=== PATIENT | female | born 1935 | race Caucasian/White ===

== ENCOUNTER → 2016-09-29 | Outpatient (CLI) | payer MEDICARE, OTHER ==
[~2016-09-29] MED LIST: ALTACE 2.5MG T2.5 MG PO; BENTYL 10MG10 MG/CAP PO; DIFICID200 MG; LASIX 20MG TABL20 MG PO; LIPITOR 40MG TA40 MG PO; MEVACOR40 MG PO; MILK OF MAGNESI30 M1 PO; NORCO 325 MG-7.1 TAB PO; PHENERGAN 25 TA25 MG PO; PLAVIX 75MG TAB75 MG PO; PROTONIX 40MG T40 MG PO; ROXICODONE 55 MG/TAB PO; SENOKOT8.6 MG PO; ULTRAM 50MG TAB50 MG PO; XANAX .25M0.25 MG/TA PO; XARELTO10 MG PO; ZESTRIL 20MG TA20 MG PO; ZOFRAN 4MG T4 MG/TAB PO
== END ==
LOC: COL.VAS 10:22
DX: R01.1 Cardiac murmur, unspecified (principal); R94.39 Abnormal result of other cardiovascular function study

== ENCOUNTER → 2018-06-13 | Outpatient (CLI) | payer MEDICARE, OTHER | LOC: COL.RAD 11:27 | DX: C79.51 Secondary malignant neoplasm of bone (principal); N90.89 Other specified noninflammatory disorders of vulva and perineum; Z79.01 Long term (current) use of anticoagulants | CPT/HCPCS: A9585 ==

== ENCOUNTER → 2019-01-08 | Outpatient (CLI) | payer MEDICARE, OTHER | LOC: COL.CARD 07:06 | DX: Z01.812 Encounter for preprocedural laboratory examination (principal); R33.9 Retention of urine, unspecified ==

== ENCOUNTER 2019-01-12 10:23 | Emergency (ER) | payer MEDICARE, OTHER ==
[~2019-01-12] VITALS: Ht 167.6 cm; Wt 65.9 kg
[2019-01-12 10:33] VITALS: BP 124/58; TEMP 98
[2019-01-12] MEDS ORDERED: OSCAL 500 TAB500 MG PO (10:50)
[2019-01-12] MEDS ORDERED: VITAMIN D31000 I1 PO (10:51)
[2019-01-12] MEDS ORDERED: CRANBERRY500 M3 PO (10:51)
[2019-01-12] MEDS ORDERED: B-12 500 MCG PO (10:52)
[2019-01-12] MEDS ORDERED: NEURONTIN100 MG/CAP PO (10:52)
[2019-01-12] MEDS ORDERED: MEGACE 40MG40 MG/TAB PO (10:53)
[2019-01-12] MEDS ORDERED: LUTEIN6 MG (10:53)
[2019-01-12] MEDS ORDERED: RESTASIS MULTI5.5 ML OU (10:54)
[2019-01-12] MEDS ORDERED: PROTONIX 40MG T40 MG PO (10:54)
[2019-01-12] MEDS ORDERED: DESYREL 100MG100 MG PO (10:55)
[2019-01-12 11:22] VITALS: PULSE 84
== END 2019-01-12 11:22 | disposition home or self-care (01) ==
LOC: COL.ER 10:23
DX: T83.098A Other mechanical complication of other urinary catheter, initial encounter (principal); I10 Essential (primary) hypertension; K21.9 Gastro-esophageal reflux disease without esophagitis; Z90.710 Acquired absence of both cervix and uterus

== ENCOUNTER 2019-02-26 09:49 | Inpatient (IN) | payer MEDICARE, OTHER ==
[~2019-02-26] VITALS: Ht 167.6 cm; Wt 60.4 kg
[~2019-02-26 09:49] MED LIST changes: +B-12 500 MCG PO; +CRANBERRY500 M3 PO; +DESYREL 100MG100 MG PO; +LUTEIN6 MG; +MEGACE 40MG40 MG/TAB PO; +NEURONTIN100 MG/CAP PO; +OSCAL 500 TAB500 MG PO; +RESTASIS MULTI5.5 ML OU; +VITAMIN D31000 I1 PO
[2019-02-26 10:38] LABS: HEMOGLOBIN 11.4 g/dl (12.5-16.0); MEAN CELL VOLUME 99 fl (80.0-100.0); MEAN CORPUSCULAR HEMOGLOBIN 32 pg (27.0-31.0); MEAN CORPUSCULAR HGB CONC 33 g/dl (33.0-37.0); MEAN PLATELET VOLUME 9.7 fl (7.4-10.4); PLATELET COUNT 244 K/mm3 (130-400); RED BLOOD COUNT 3.52 M/mm3 (4.10-5.30); REDCELL DISTRIBUTION WIDTH-CV 12.8 % (11.5-14.5)
[2019-02-26 10:39] LABS: HEMATOCRIT 34.8 % (37.0-47.0)
[2019-02-26 10:51] LABS: ALBUMIN 3.5 gm/dL (3.5-5.0); BILIRUBIN,TOTAL 0.5 mg/dL (0.0-1.0); CALCIUM 9.3 mg/dL (8.4-10.2); CREATININE, serum 1.31 (0.52-1.25); POTASSIUM 4.9 mmol/L (3.4-5.0); TOTAL PROTEIN 6.6 gm/dL (6.4-8.2)
[2019-02-26 10:56] LABS: BAND 24 % (0-10); LYMPHOCYTE 1 % (20.0-51.0); NEUTROPHILS 74 % (42.0-75.2); TOXIC GRANULATION PRESENT
[2019-02-26 10:57] LABS: PLATELET ESTIMATE NORMAL (NORMAL)
[2019-02-26 12:12] LABS: COLLECTION METHOD CATHETER
[2019-02-26 12:18] LABS: MUCOUS Present /lpf; PH 5 (5-8); SQUAMOUS EPITHELIAL None Seen /hpf; URINE APPEARANCE Hazy; URINE BACTERIA None Seen /hpf; URINE BILIRUBIN Negative (NEGATIVE); URINE BLOOD Negative (NEGATIVE); URINE COLOR Yellow; URINE GLUCOSE Negative (NEGATIVE); URINE KETONE Negative (NEGATIVE); URINE LEUKOCYTE ESTERASE Trace (NEGATIVE); URINE NITRATE Positive (NEGATIVE); URINE PROTEIN(semi-quant) Negative (NEGATIVE); URINE UROBILINOGEN Negative (NEGATIVE)
[2019-02-26] MEDS ORDERED: PLAVIX 75MG TAB75 MG PO (13:41)
[2019-02-26] MEDS ORDERED: MASON NATURAL500 MG PO (13:42)
[2019-02-26] MEDS ORDERED: MIRALAX PA17 GM/Dose PO (13:44)
[2019-02-26] MEDS ORDERED: NYSTATIN OR100 MU/ML PO (13:45)
[2019-02-26] MEDS ORDERED: OCUVITE1 TA1 PO (13:54)
[2019-02-26] MEDS ORDERED: DITROPAN XL 5MG5 M1 PO (13:55)
[2019-02-26] MEDS ORDERED: OXY IR5 MG PO (13:55)
[2019-02-26] MEDS ORDERED: OMEGA MINT FISH1 SGL (13:55)
[2019-02-26] MEDS ORDERED: TAMOXIFEN CITRA20 MG PO (13:56)
[2019-02-26] MEDS ORDERED: TYLENOL 325MG325 MG PO (13:57)
[2019-02-26] MEDS ORDERED: VITAMIN A10k (13:57)
[2019-02-26] MEDS ORDERED: B COMPLEX #11 TAB (13:58)
[2019-02-26 16:02] VITALS: BP 128/39; PULSE 79; TEMP 98.6
--- NOTE | 2019-02-26 17:20 | NUR ---
Patient arrived to room from ER via stretcher. Had fluids and antibiotics infusing. Was assisted off stretcher with assist of one, myron pressley. Is observed to have bruising to left eye and arm. States she is having abdominal pain, aching duration. PRN pain medication administered per patient request. Patient is curently resting in bed with eyes closed. Does have clear liquid diet, provided ice water. Personal items and call light are within reach.
--- NOTE | 2019-02-26 17:59 | NUR ---
Patient is resting in bed with lights off and door closed. States pain has improved some since PRN was administered. Does open eyes to voice. Call light and personal items are within reach.
[2019-02-26 19:29] VITALS: BP 117/79; PULSE 93; TEMP 98.9
--- NOTE | 2019-02-26 20:00 | NUR ---
Report received. 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 Assessment complete. VS stable. Zhu cath draining dark yellow clear urine. Noted to have a leg bag-changed to regular bag due to increased output due to IV fluids. New statlock attached to left leg. Seems to be slightly confused as to what tie of day it is. When administering HS meds thought it was 0830 in the morning instead of 2030. Was oriented in every other question. Denies pain, states she is just tired. Tele leads checked and replaced. Denies N/V. No liquid stools this shift. Call light within reach. Enocuraged to call for questions or concerns. Verbalizes understanding. WIll monitor.
[2019-02-26 23:53] VITALS: BP 112/34; PULSE 87; TEMP 99
[2019-02-26 23:55] VITALS: BP 112/34; PULSE 87; TEMP 99
--- NOTE | 2019-02-27 03:31 | NUR ---
Has rested well this shift. Denies N/V. No stools this shift. Has been alert and oriented to person, place and time after initial confusion at 1999. Has denied pain. Zhu cath to dependent draining-urine has been [id number]. VS have remained stable. IV to left wrist area infusing NS @125ml/hr without difficulty. No redness or swelling noted. Denies needs. High fall risk-signs hung-arm band applied. Call light in reach. Bed in low position. Wheels locked. Will monitor.
[2019-02-27 04:07] VITALS: BP 111/35; PULSE 91; TEMP 98.9
[2019-02-27 06:29] LABS: BASO # 0.1 (0.0-0.2); BASO % 0.4 % (0.0-2.0); GRAN % 85.7 % (42.2-75.2); LYMPH # 0.9 (1.2-3.4); LYMPH % 7.9 % (20.0-51.0); MEAN CELL VOLUME 98 fl (80.0-100.0); MEAN CORPUSCULAR HGB CONC 33 g/dl (33.0-37.0); MEAN PLATELET VOLUME 9.8 fl (7.4-10.4); MONO # 0.7 (0.1-0.6); MONO % 5.6 % (1.7-9.3); PLATELET COUNT 178 K/mm3 (130-400)
[2019-02-27 06:33] LABS: CREATININE, serum 0.93 (0.52-1.25)
[2019-02-27 06:55] LABS: HEMATOCRIT 27.5 % (37.0-47.0); HEMOGLOBIN 9.1 g/dl (12.5-16.0); MEAN CORPUSCULAR HEMOGLOBIN 33 pg (27.0-31.0)
--- NOTE | 2019-02-27 07:00 | NUR ---
Report received from NAKIA Unger. Pt in bed resting with covers over her face and did not awaken upon entry. Will continue to monitor.
[2019-02-27 08:00] VITALS: BP 101/53; PULSE 89; TEMP 98.6
--- NOTE | 2019-02-27 10:14 | NUR ---
Report given to Chepe Mckeon who will resume care. Rounding in room with hospitalist team at this time.
--- NOTE | 2019-02-27 10:30 | NUR ---
Completed medication administration and assessment; PT tolerated all cares well; PT able to communication concerns and acute changes during assessment; PT A&Ox3, LCTAB, multiple bruises in various stages of healing from fall at home; NS running at 75ml/hr to LW IV; Catheter in place draining yellow urine to dependent college bag; No further reported and/or assessed pain or concerns at time of exit; PT assisted to comfortable position in bed with personal items and call light within reach; Will continue to [facility]. [facility]
[2019-02-27 12:27] VITALS: BP 140/43; PULSE 89; TEMP 98.1
--- NOTE | 2019-02-27 14:43 | NUR ---
SW attended clinical rounds to discuss discharge planning. Patient lives independently at home with her . Patient's PCP is Dr Tirado and she obtains prescriptions from [facility] pharmacy. Patient does not use any DME or home health services. Patient does have a DPOA. SW will continue to follow and assist with discharge needs.
[2019-02-27 16:39] VITALS: BP 115/38; PULSE 69; TEMP 97.4
[2019-02-27 19:58] VITALS: BP 136/43; PULSE 80; TEMP 98.7
--- NOTE | 2019-02-27 20:30 | NUR ---
Initial shift assessment done- states having some abd pain and would like some pain meds- , also having loose stool- would like some meds for that also- Akanksha CANINE DEPUTY called- cannot have antidiarrhea meds, tylenol ordered for pain. Tele on, IV fluids of NS at 75cc/hr.
[2019-02-27 23:34] VITALS: BP 140/46; PULSE 89; TEMP 99.1
[2019-02-28 04:30] VITALS: BP 117/43; PULSE 89; TEMP 99.2
--- NOTE | 2019-02-28 05:56 | NUR ---
Up to BSC about 5-6 times for loose brown stool- Tele did call and states pt had a very quick run of afib rvr for about 12 beats-- Akanksha AGRICULTURAL SPECIALIST aware
[2019-02-28 07:09] VITALS: BP 135/47; PULSE 99; TEMP 98.8
[2019-02-28 07:29] LABS: BASO # 0.1 (0.0-0.2); BASO % 0.7 % (0.0-2.0); EOS # 0.1 (0.0-0.7); EOS % 1.4 % (0-4.0); GRAN # 5.1 (1.4-6.5); GRAN % 71.9 % (42.2-75.2); LYMPH # 1.4 (1.2-3.4); LYMPH % 19.5 % (20.0-51.0); MEAN CELL VOLUME 99 fl (80.0-100.0); MEAN CORPUSCULAR HGB CONC 33 g/dl (33.0-37.0); MEAN PLATELET VOLUME 9.8 fl (7.4-10.4); MONO # 0.4 (0.1-0.6); MONO % 6.2 % (1.7-9.3); PLATELET COUNT 166 K/mm3 (130-400); RED BLOOD COUNT 2.39 M/mm3 (4.10-5.30); REDCELL DISTRIBUTION WIDTH-CV 13.2 % (11.5-14.5)
[2019-02-28 07:32] LABS: HEMATOCRIT 23.6 % (37.0-47.0); HEMOGLOBIN 7.7 g/dl (12.5-16.0); MEAN CORPUSCULAR HEMOGLOBIN 32 pg (27.0-31.0)
[2019-02-28 07:41] LABS: CALCIUM 7.9 mg/dL (8.4-10.2); CREATININE, serum 0.72 (0.52-1.25); POTASSIUM 4.2 mmol/L (3.4-5.0)
--- NOTE | 2019-02-28 07:57 | NUR ---
Pt awake, alert and oriented. Denies any pain at this time. Breathing even and unlabored, denies shortness of breath. Completed morning assessment. Bruising noted to left eye and left arm. Smaller bruises noted on right arm. Zhu in place, draining clear yellow urine. Denies any loose stool since last night at 2300. Will continue to monitor, call light in reach.
--- NOTE | 2019-02-28 08:05 | NUR ---
During medication adminisration pt denies taking Nolvadex at the same time as megace. Reports she used to take them together but now her doctor has her switching every 21 days with the magace. She couldnt tell me what days she is supposed to take each without her calender.
[2019-02-28 11:15] VITALS: BP 128/47; PULSE 79; TEMP 98.3
--- NOTE | 2019-02-28 12:18 | NUR ---
PT LET ME KNOW SHE BEGAN HER ROUND OF BRANDEN ON February AND WILL TAKE THAT UNTIL February. WILL LET PHARMACY KNOW.
[2019-02-28 15:47] VITALS: BP 104/37; PULSE 74; TEMP 99.1
--- NOTE | 2019-02-28 16:48 | NUR ---
Pt lying in bed, breathing even and unlabored. Denies any pain at this time. WIll continue to monitor. Call light in reach.
--- NOTE | 2019-02-28 18:32 | NUR ---
Pt sitting in bed, denies any needs. Denies pain. Taught pt about needing a stool sample, hat in bathroom with occult test.
--- NOTE | 2019-02-28 19:01 | NUR ---
Pt lying in bed, denies any needs at this time. Hand off report given to Hodan YEE.
--- NOTE | 2019-02-28 20:39 | NUR ---
PT RESTING IN BED A+OX4. REPORTS NO PAIN. GRANT DRAINING FREELY NO KINKS, SECURED TO LEG. CLEAR YELLOW URINE NOTED. IV TO LEFT FOREARM FLUSHES WELL, NO REDNESS, NO SWELLING. NO SOA. REPORTS NO NEEDS AT THIS TIME, CALL LIGHT IN REACH
[2019-02-28 20:42] VITALS: BP 117/51; PULSE 80; TEMP 98.5
[2019-02-28 23:20] VITALS: BP 143/48; PULSE 87; TEMP 98.7
--- NOTE | 2019-03-01 | NUR ---
PT STOOL OCCULT IS POSSITIVE. ISAEL NIEL NOTIFIED. HGB DRAWN- STABLE AT THIS TIME. TYPE AND SCREEN ORDERED. HELADIO CARE POVIDED. GRANT DRAINING FREELY, NO KINKS. SECURED TO LEG. NO NEEDS AT THIS TIME. CALL LIGHT IN REACH
[2019-03-01 00:44] LABS: HEMATOCRIT 23.9 % (37.0-47.0)
[2019-03-01 04:03] VITALS: BP 144/56; PULSE 88; TEMP 99.7
--- NOTE | 2019-03-01 06:54 | NUR ---
PT HAD AN UNEVENTFUL NIGHT. REPORTED SOME PAIN IN ABD- PRN TYLENOL RELIEVED PAIN. HELADIO CARE PROVIDED. GRANT DRAINING FREELY, NO KINKS, SECURED TO LEG. IV FLUSHES WELL, NO REDNESS, NO SWELLING. STOOL OCCULT POSSITIVE- JOLYNN, BUTT SAWYER NOTIFIED. NO NEEDS AT THIS TIME. CALL LIGHT IN REACH
--- NOTE | 2019-03-01 06:59 | NUR ---
REPORT GIVEN TO NAKIA VELÁZQUEZ
[2019-03-01 07:09] LABS: BASO % 0.7 % (0.0-2.0); EOS # 0.2 (0.0-0.7); EOS % 3.2 % (0-4.0); GRAN # 3.9 (1.4-6.5); GRAN % 64.7 % (42.2-75.2); LYMPH # 1.4 (1.2-3.4); LYMPH % 23.9 % (20.0-51.0); MEAN CELL VOLUME 98 fl (80.0-100.0); MEAN CORPUSCULAR HGB CONC 33 g/dl (33.0-37.0); MONO # 0.4 (0.1-0.6); MONO % 7.2 % (1.7-9.3); PLATELET COUNT 167 K/mm3 (130-400); RED BLOOD COUNT 2.55 M/mm3 (4.10-5.30); REDCELL DISTRIBUTION WIDTH-CV 13.4 % (11.5-14.5); RETIC # 0.03 M/mm3 (0.02-0.16); RETIC % 1.3 % (0.5-3.52)
[2019-03-01 07:14] LABS: HEMOGLOBIN 8.3 g/dl (12.5-16.0); MEAN CORPUSCULAR HEMOGLOBIN 33 pg (27.0-31.0)
[2019-03-01 07:16] VITALS: BP 131/56; PULSE 88; TEMP 98.4
[2019-03-01 07:24] LABS: CALCIUM 8.1 mg/dL (8.4-10.2); CREATININE, serum 0.77 (0.52-1.25); POTASSIUM 4.1 mmol/L (3.4-5.0)
--- NOTE | 2019-03-01 08:30 | NUR ---
Pt sitting up in bed, denies any pain or shortness of breath. Breathing even and unlabored. ecchymosis noted left eye and left arm. Completed morning assessment. Zhu catheter in place, emptied 2,000ml of clear yellow urine. Pt denies feeling weak. Will continue to monitor. Call light in reach.
[2019-03-01 13:05] VITALS: BP 136/63; PULSE 79; TEMP 98.2
[2019-03-01 13:13] LABS: IRON,SERUM 43 ug/dL (35-150)
[2019-03-01 13:22] LABS: TOTAL IRON BINDING CAPACITY 194 ug/dL (265-497)
[2019-03-01 13:49] LABS: FERRITIN 146 ng/mL (11-264)
[2019-03-01 17:11] VITALS: BP 147/57; PULSE 75; TEMP 98.8
[2019-03-01 17:13] LABS: FOLATE (FOLIC ACID) 12.1 ng/mL (7.0-31.4)
--- NOTE | 2019-03-01 19:08 | NUR ---
Pt sitting in bed, denies any pain. Denies any needs at this time. Call light in reach. Report given to Hodan YEE.
[2019-03-01 19:18] VITALS: BP 131/50; PULSE 74; TEMP 97.5
--- NOTE | 2019-03-01 20:30 | NUR ---
PT RESTING IN BED A+OX4. DR HOUSE CHANGED GRANT. URINE OUTPUT NOTED. GRANT HAS NO KINKS, DRAINING FREELY- SECURED TO LEG. PT REPORTED AN IRRITATION PAIN AFTER GRANT PLACEMENT - PRN TYLENOL GIVEN AND REPORTED RELIEF. NEURO CHECKS UNCHANGED AND INSIGNIFICANT. BRUISING NOTED ON LEFT EYE AND LEFT ARM. NO NEEDS AT THIS TIME. CALL LIGHT IN REACH
[2019-03-02 00:16] VITALS: BP 139/44; PULSE 87; TEMP 98.4
[2019-03-02 03:43] VITALS: BP 116/76; PULSE 85; TEMP 97.8
--- NOTE | 2019-03-02 05:54 | NUR ---
pt had an uneventful night. anne was changed by DR LAYNE, urine output noted. reports no pain at this time. nuero checks unchanged and insignificant.iv flushes well, no swelling, no redness. pt reports no needs at this time. call light in reach.
--- NOTE | 2019-03-02 06:57 | NUR ---
report given to NAKIA Briceno. pt reports no needs
[2019-03-02 08:51] LABS: BASO % 0.8 % (0.0-2.0); EOS # 0.2 (0.0-0.7); EOS % 3.7 % (0-4.0); GRAN # 3.2 (1.4-6.5); GRAN % 61.5 % (42.2-75.2); LYMPH # 1.3 (1.2-3.4); LYMPH % 24.5 % (20.0-51.0); MEAN CELL VOLUME 98 fl (80.0-100.0); MEAN CORPUSCULAR HGB CONC 33 g/dl (33.0-37.0); MEAN PLATELET VOLUME 9.9 fl (7.4-10.4); MONO # 0.5 (0.1-0.6); MONO % 9.1 % (1.7-9.3); PLATELET COUNT 196 K/mm3 (130-400); RED BLOOD COUNT 2.61 M/mm3 (4.10-5.30); REDCELL DISTRIBUTION WIDTH-CV 13.6 % (11.5-14.5)
[2019-03-02 08:53] VITALS: BP 136/83; PULSE 79; TEMP 99.1
[2019-03-02 09:01] LABS: CALCIUM 7.9 mg/dL (8.4-10.2); CREATININE, serum 0.64 (0.52-1.25); POTASSIUM 3.7 mmol/L (3.4-5.0)
[2019-03-02 09:04] LABS: HEMATOCRIT 25.6 % (37.0-47.0); HEMOGLOBIN 8.5 g/dl (12.5-16.0); MEAN CORPUSCULAR HEMOGLOBIN 33 pg (27.0-31.0)
--- NOTE | 2019-03-02 09:25 | NUR ---
Pt assessment completed. Pt resting in bed and just ordered breakfast. Pt alert and oriented and neuro WNL and unchanged. Pt has chronic anne that was changed by DR. Miller last NOC. Pt has clear yellow output noted. Pt IV patent no redness or infiltration. Pt denies pain or SOB. Pt has call light in reach and fall precautions in place.
[2019-03-02 12:52] VITALS: BP 117/43; BP 217/43; PULSE 80; TEMP 98.7
[2019-03-02] MEDS ORDERED: CIPRO 500MG TA500 MG PO (14:42)
--- NOTE | 2019-03-02 16:00 | NUR ---
Pt given discharge instructions and changed anne to leg bag. [facility] Pt spouse here to pick her up. Pericares and bedbath provided by aide. Pt assisted to get dressed and all belongings gathered. Pt IV discontinued tip intact and no redness or infiltration and drsg applied. Pt has had chronic anne for awhile now and follows with [facility]. Pt education meds reviewed. Pt escorted out via wheelchair by aide.
== END 2019-03-02 16:30 | disposition home or self-care (01) | DRG 683 ==
LOC: COL.ER 09:49 → MEDICAL 12:45
PROVIDERS: Emergency Medicine; Family Medicine; Nurse Practitioner; Physician Assistant; ADMIT Family Medicine
DX: N17.9 Acute kidney failure, unspecified (principal); E87.1 Hypo-osmolality and hyponatremia; E87.2 Acidosis; K52.9 Noninfective gastroenteritis and colitis, unspecified; E87.8 Other disorders of electrolyte and fluid balance, not elsewhere classified; C76.3 Malignant neoplasm of pelvis; R53.1 Weakness; R91.1 Solitary pulmonary nodule; I10 Essential (primary) hypertension; E78.5 Hyperlipidemia, unspecified; K21.9 Gastro-esophageal reflux disease without esophagitis; D64.9 Anemia, unspecified; Z86.73 Personal history of transient ischemic attack (TIA), and cerebral infarction without residual deficits; Z79.02 Long term (current) use of antithrombotics/antiplatelets; S09.90XA Unspecified injury of head, initial encounter; W18.39XA Other fall on same level, initial encounter; Z91.81 History of falling; Y92.003 Bedroom of unspecified non-institutional (private) residence as the place of occurrence of the external cause; E86.0 Dehydration
CPT/HCPCS: 99222-AI; 99233-AI; 99239; J0744; J1644; J2270; J2916; J7030; Q9967

== ENCOUNTER 2019-04-27 13:56 | Emergency (ER) | payer MEDICARE, OTHER ==
[~2019-04-27] VITALS: Ht 167.6 cm; Wt 62.3 kg
[~2019-04-27 13:56] MED LIST changes: +B COMPLEX #11 TAB; +CIPRO 500MG TA500 MG PO; +DITROPAN XL 5MG5 M1 PO; +MASON NATURAL500 MG PO; +MIRALAX PA17 GM/Dose PO; +NYSTATIN OR100 MU/ML PO; +OCUVITE1 TA1 PO; +OMEGA MINT FISH1 SGL; +OXY IR5 MG PO; +TAMOXIFEN CITRA20 MG PO; +TYLENOL 325MG325 MG PO; +VITAMIN A10k
[2019-04-27 15:06] LABS: BASO # 0.1 (0.0-0.2); BASO % 0.9 % (0.0-2.0); EOS # 0.2 (0.0-0.7); EOS % 2.9 % (0-4.0); GRAN # 3.3 (1.4-6.5); GRAN % 59.1 % (42.2-75.2); LYMPH # 1.4 (1.2-3.4); LYMPH % 25.4 % (20.0-51.0); MEAN CELL VOLUME 98 fl (80.0-100.0); MEAN CORPUSCULAR HGB CONC 33 g/dl (33.0-37.0); MEAN PLATELET VOLUME 8.6 fl (7.4-10.4); MONO # 0.6 (0.1-0.6); MONO % 11.5 % (1.7-9.3); PLATELET COUNT 248 K/mm3 (130-400); RED BLOOD COUNT 3.03 M/mm3 (4.10-5.30); REDCELL DISTRIBUTION WIDTH-CV 13.8 % (11.5-14.5)
[2019-04-27 15:14] LABS: HEMATOCRIT 29.7 % (37.0-47.0); HEMOGLOBIN 9.8 g/dl (12.5-16.0); MEAN CORPUSCULAR HEMOGLOBIN 32 pg (27.0-31.0)
[2019-04-27 15:18] LABS: ALANINE AMINOTRANSFERASE 12 U/L (9-52); ALBUMIN 3.7 gm/dL (3.5-5.0); ALKALINE PHOSPHATASE 24 U/L (50-136); ANION GAP 8 mmol/L (7-16); AST,SGOT 29 U/L (15-37); BILIRUBIN,TOTAL 0.2 mg/dL (0.0-1.0); BLOOD UREA NITROGEN 16 mg/dL (7-17); C-REACTIVE PROTEIN 0.7 mg/dL (0.0-0.9); CALCIUM 8.9 mg/dL (8.4-10.2); CARBON DIOXIDE 24 mmol/L (22-30); CHLORIDE 99 mmol/L (98-107); GLUCOSE 109 mg/dL (74-106); POTASSIUM 4.7 mmol/L (3.4-5.0); SODIUM 131 mmol/L (137-145); TOTAL PROTEIN 6.8 gm/dL (6.4-8.2)
[2019-04-27 15:27] LABS: TROPONIN-I < 0.012 ng/mL (0.000-0.035)
[2019-04-27 15:45] LABS: COLLECTION METHOD CATHETER
[2019-04-27 15:57] LABS: MUCOUS Present /lpf; PH 6 (5-8); SQUAMOUS EPITHELIAL None Seen /hpf; URINE APPEARANCE Clear; URINE BACTERIA Rare /hpf; URINE BILIRUBIN Negative (NEGATIVE); URINE BLOOD 3+ (NEGATIVE); URINE COLOR Straw; URINE GLUCOSE Negative (NEGATIVE); URINE KETONE Negative (NEGATIVE); URINE LEUKOCYTE ESTERASE 3+ (NEGATIVE); URINE NITRATE Positive (NEGATIVE); URINE PROTEIN(semi-quant) Negative (NEGATIVE); URINE UROBILINOGEN Negative (NEGATIVE)
[2019-04-27] MEDS ORDERED: OMNICEF 300MG300 MG PO (16:07)
[2019-04-27 16:28] VITALS: BP 163/97; PULSE 84; TEMP 97.2
== END 2019-04-27 16:36 | disposition home or self-care (01) ==
LOC: COL.ER 13:56
PROVIDERS: Emergency Medicine
DX: N39.0 Urinary tract infection, site not specified (principal); I10 Essential (primary) hypertension; Z79.02 Long term (current) use of antithrombotics/antiplatelets
CPT/HCPCS: J7030

== ENCOUNTER 2019-05-28 08:41 | Emergency (ER) | payer MEDICARE, OTHER ==
[~2019-05-28] VITALS: Ht 167.6 cm; Wt 61.4 kg
[~2019-05-28 08:41] MED LIST changes: +OMNICEF 300MG300 MG PO
[2019-05-28 08:50] VITALS: TEMP 98.2
[2019-05-28 09:48] LABS: BASO % 0.2 % (0.0-2.0); GRAN # 6.7 (1.4-6.5); GRAN % 82.1 % (42.2-75.2); HEMOGLOBIN 10.6 g/dl (12.5-16.0); LYMPH # 0.9 (1.2-3.4); LYMPH % 11.4 % (20.0-51.0); MEAN CELL VOLUME 96 fl (80.0-100.0); MEAN CORPUSCULAR HEMOGLOBIN 32 pg (27.0-31.0); MEAN CORPUSCULAR HGB CONC 34 g/dl (33.0-37.0); MEAN PLATELET VOLUME 8.8 fl (7.4-10.4); MONO # 0.5 (0.1-0.6); MONO % 5.8 % (1.7-9.3); PLATELET COUNT 297 K/mm3 (130-400); RED BLOOD COUNT 3.28 M/mm3 (4.10-5.30)
[2019-05-28 09:55] LABS: HEMATOCRIT 31.5 % (37.0-47.0)
[2019-05-28 09:59] LABS: PROTHROMBIN TIME 11.9 SECONDS (9.7-12.8)
[2019-05-28 10:02] LABS: PARTIAL THROMBOPLASTIN TIME 26.5 SECONDS (26.0-37.0)
[2019-05-28 10:04] LABS: ALANINE AMINOTRANSFERASE 21 U/L (9-52); ALKALINE PHOSPHATASE 27 U/L (50-136); ANION GAP 9 mmol/L (7-16); AST,SGOT 33 U/L (15-37); BILIRUBIN,TOTAL 0.4 mg/dL (0.0-1.0); BLOOD UREA NITROGEN 15 mg/dL (7-17); C-REACTIVE PROTEIN 0.6 mg/dL (0.0-0.9); CALCIUM 9.2 mg/dL (8.4-10.2); CARBON DIOXIDE 26 mmol/L (22-30); CHLORIDE 92 mmol/L (98-107); CREATININE, serum 0.65 (0.52-1.25); GLUCOSE 111 mg/dL (74-106); LIPASE 51 U/L (23-300); POTASSIUM 4.7 mmol/L (3.4-5.0); SODIUM 126 mmol/L (137-145); TOTAL PROTEIN 7.3 gm/dL (6.4-8.2)
[2019-05-28 10:12] LABS: TROPONIN-I < 0.012 ng/mL (0.000-0.035)
[2019-05-28 10:32] LABS: COLLECTION METHOD CATHETER
[2019-05-28 10:42] LABS: BUDDING YEAST Present /hpf; MUCOUS Present /lpf; PH 7 (5-8); SQUAMOUS EPITHELIAL None Seen /hpf; URINE APPEARANCE Hazy; URINE BACTERIA Rare /hpf; URINE BILIRUBIN Negative (NEGATIVE); URINE BLOOD 1+ (NEGATIVE); URINE COLOR Yellow; URINE GLUCOSE Negative (NEGATIVE); URINE KETONE Trace (NEGATIVE); URINE LEUKOCYTE ESTERASE 1+ (NEGATIVE); URINE NITRATE Negative (NEGATIVE); URINE PROTEIN(semi-quant) 1+ (NEGATIVE); URINE UROBILINOGEN Negative (NEGATIVE)
[2019-05-28] MEDS ORDERED: ULTRAM 50MG TAB50 MG PO (11:16)
[2019-05-28] MEDS ORDERED: ARIMIDEX1 MG PO (11:19)
[2019-05-28] MEDS ORDERED: DIFLUCAN50 MG PO (13:17)
[2019-05-28] MEDS ORDERED: PROMETHAZINE12.5 M5 PO (13:17)
[2019-05-28] MEDS ORDERED: CIPRO 500MG TA500 MG PO (13:17)
[2019-05-28 13:23] VITALS: BP 167/88; PULSE 79
== END 2019-05-28 13:22 | disposition home or self-care (01) ==
LOC: COL.ER 08:41
PROVIDERS: Emergency Medicine
DX: N39.0 Urinary tract infection, site not specified (principal); E87.1 Hypo-osmolality and hyponatremia; E03.9 Hypothyroidism, unspecified; I10 Essential (primary) hypertension; Z90.89 Acquired absence of other organs; Z90.710 Acquired absence of both cervix and uterus; Z86.73 Personal history of transient ischemic attack (TIA), and cerebral infarction without residual deficits; Z85.41 Personal history of malignant neoplasm of cervix uteri
CPT/HCPCS: J2405; J7030

== ENCOUNTER 2019-07-18 14:22 | Emergency (ER) | payer MEDICARE, OTHER ==
[~2019-07-18] VITALS: Ht 167.6 cm; Wt 61.4 kg
[~2019-07-18 14:22] MED LIST changes: +ARIMIDEX1 MG PO; +DIFLUCAN50 MG PO; +PROMETHAZINE12.5 M5 PO
[2019-07-18 15:12] LABS: COLLECTION METHOD CATHETER
[2019-07-18] MEDS ORDERED: LEADER NATUR1000 MCG NAS (15:18)
[2019-07-18 15:19] LABS: BASO % 0.4 % (0.0-2.0); EOS # 0.2 (0.0-0.7); EOS % 1.9 % (0-4.0); GRAN # 7.6 (1.4-6.5); LYMPH # 0.9 (1.2-3.4); LYMPH % 9.2 % (20.0-51.0); MEAN CELL VOLUME 99 fl (80.0-100.0); MEAN CORPUSCULAR HGB CONC 32 g/dl (33.0-37.0); MEAN PLATELET VOLUME 8.9 fl (7.4-10.4); MONO # 0.9 (0.1-0.6); MONO % 9.2 % (1.7-9.3); PLATELET COUNT 256 K/mm3 (130-400); RED BLOOD COUNT 3.07 M/mm3 (4.10-5.30); REDCELL DISTRIBUTION WIDTH-CV 13.2 % (11.5-14.5)
[2019-07-18 15:24] LABS: HEMATOCRIT 30.3 % (37.0-47.0); HEMOGLOBIN 9.8 g/dl (12.5-16.0); MEAN CORPUSCULAR HEMOGLOBIN 32 pg (27.0-31.0)
[2019-07-18 15:28] LABS: ALBUMIN 3.5 gm/dL (3.5-5.0); BILIRUBIN,TOTAL 0.3 mg/dL (0.0-1.0); CALCIUM 8.9 mg/dL (8.4-10.2); CREATININE, serum 0.8 (0.52-1.25); POTASSIUM 4.4 mmol/L (3.4-5.0); TOTAL PROTEIN 6.6 gm/dL (6.4-8.2)
[2019-07-18] MEDS ORDERED: VITAMIN A10k PO (15:28)
[2019-07-18] MEDS ORDERED: TAMOXIFEN CITRA20 MG PO (15:29)
[2019-07-18] MEDS ORDERED: LASIX 40MG TABL40 MG PO (15:31)
[2019-07-18] MEDS ORDERED: RESTASIS MULTI5.5 ML OD (15:31)
[2019-07-18 15:33] LABS: PH 6 (5-8); SQUAMOUS EPITHELIAL 0-2 /hpf; URINE APPEARANCE Hazy; URINE BACTERIA None Seen /hpf; URINE BILIRUBIN Negative (NEGATIVE); URINE BLOOD 2+ (NEGATIVE); URINE CALCIUM OXALATE CRYSTAL Present /hpf; URINE COLOR Yellow; URINE GLUCOSE Negative (NEGATIVE); URINE KETONE Negative (NEGATIVE); URINE LEUKOCYTE ESTERASE 1+ (NEGATIVE); URINE NITRATE Positive (NEGATIVE); URINE PROTEIN(semi-quant) Negative (NEGATIVE); URINE UROBILINOGEN Negative (NEGATIVE)
[2019-07-18] MEDS ORDERED: B COMPLEX #11 TAB PO (15:33)
[2019-07-18 17:09] VITALS: BP 142/76; PULSE 88; TEMP 98.4
[2019-07-19] MEDS ORDERED: CEPHALEXIN500 M1 PO ×2 (22:03)
[2019-07-20] MEDS ORDERED: CEPHALEXIN500 M1 PO (14:57)
== END 2019-07-18 17:10 | disposition home or self-care (01) ==
LOC: COL.ER 14:22
PROVIDERS: Emergency Medicine
DX: R60.9 Edema, unspecified (principal); M54.5 Low back pain; M25.552 Pain in left hip
CPT/HCPCS: J1885

== ENCOUNTER 2019-07-22 13:01 | Emergency (ER) | payer MEDICARE, OTHER ==
[~2019-07-22] VITALS: Ht 167.6 cm; Wt 61.4 kg
[~2019-07-22 13:01] MED LIST changes: +B COMPLEX #11 TAB PO; +CEPHALEXIN500 M1 PO; +LASIX 40MG TABL40 MG PO; +LEADER NATUR1000 MCG NAS; +RESTASIS MULTI5.5 ML OD; +VITAMIN A10k PO
[2019-07-22 13:12] VITALS: TEMP 98.2
[2019-07-22] MEDS ORDERED: OMNICEF 300MG300 MG PO (13:32)
[2019-07-22 13:36] LABS: COLLECTION METHOD CATHETER
[2019-07-22 13:42] VITALS: BP 144/88; PULSE 87
[2019-07-22 13:43] LABS: MUCOUS Present /lpf; PH 6 (5-8); SQUAMOUS EPITHELIAL None Seen /hpf; URINE APPEARANCE Clear; URINE BACTERIA None Seen /hpf; URINE BILIRUBIN Negative (NEGATIVE); URINE BLOOD Negative (NEGATIVE); URINE COLOR Yellow; URINE GLUCOSE Negative (NEGATIVE); URINE KETONE Negative (NEGATIVE); URINE LEUKOCYTE ESTERASE Negative (NEGATIVE); URINE NITRATE Negative (NEGATIVE); URINE PROTEIN(semi-quant) Negative (NEGATIVE); URINE UROBILINOGEN Negative (NEGATIVE)
== END 2019-07-22 13:45 | disposition home or self-care (01) ==
LOC: COL.ER 13:01
PROVIDERS: Emergency Medicine
DX: T83.031A Leakage of indwelling urethral catheter, initial encounter (principal); I10 Essential (primary) hypertension; E78.5 Hyperlipidemia, unspecified; Z86.73 Personal history of transient ischemic attack (TIA), and cerebral infarction without residual deficits; Z90.89 Acquired absence of other organs; Z90.710 Acquired absence of both cervix and uterus; Z85.53 Personal history of malignant neoplasm of renal pelvis

== ENCOUNTER 2019-09-17 12:00 | Inpatient (IN) | payer MEDICARE, OTHER ==
[~2019-09-17] VITALS: Ht 167.6 cm; Wt 62.5 kg
[2019-09-17 13:19] LABS: BASO # 0.1 (0.0-0.2); BASO % 0.4 % (0.0-2.0); EOS % 0.2 % (0-4.0); GRAN # 9.6 (1.4-6.5); LYMPH # 1.1 (1.2-3.4); LYMPH % 9.6 % (20.0-51.0); MEAN CELL VOLUME 93 fl (80.0-100.0); MEAN CORPUSCULAR HGB CONC 31 g/dl (33.0-37.0); MONO # 0.9 (0.1-0.6); MONO % 7.4 % (1.7-9.3); PLATELET COUNT 579 K/mm3 (130-400); RED BLOOD COUNT 3.41 M/mm3 (4.10-5.30); REDCELL DISTRIBUTION WIDTH-CV 14.1 % (11.5-14.5)
[2019-09-17 13:22] LABS: HEMATOCRIT 31.8 % (37.0-47.0); HEMOGLOBIN 9.9 g/dl (12.5-16.0); MEAN CORPUSCULAR HEMOGLOBIN 29 pg (27.0-31.0)
[2019-09-17 13:27] LABS: COLLECTION METHOD CLEAN CATCH
[2019-09-17 13:28] LABS: INR 1.1 (0.8-3.0); PROTHROMBIN TIME 13.4 SECONDS (9.7-12.8)
[2019-09-17 13:29] LABS: ALANINE AMINOTRANSFERASE 25 U/L (9-52); ALBUMIN 3.4 gm/dL (3.5-5.0); ALKALINE PHOSPHATASE 114 U/L (50-136); ANION GAP 10 mmol/L (7-16); AST,SGOT 54 U/L (15-37); BILIRUBIN,TOTAL 0.3 mg/dL (0.0-1.0); BLOOD UREA NITROGEN 27 mg/dL (7-17); CALCIUM 9.5 mg/dL (8.4-10.2); CARBON DIOXIDE 28 mmol/L (22-30); CHLORIDE 95 mmol/L (98-107); CREATININE, serum 1.07 (0.52-1.25); GLUCOSE 94 mg/dL (74-106); POTASSIUM 4.9 mmol/L (3.4-5.0); SODIUM 133 mmol/L (137-145)
[2019-09-17 13:44] LABS: TROPONIN-I < 0.012 ng/mL (0.000-0.035)
[2019-09-17 14:03] LABS: MUCOUS Present /lpf; PH 5 (5-8); SQUAMOUS EPITHELIAL None Seen /hpf; URINE APPEARANCE Hazy; URINE BACTERIA Rare /hpf; URINE BILIRUBIN Negative (NEGATIVE); URINE BLOOD Negative (NEGATIVE); URINE CALCIUM OXALATE CRYSTAL Present /hpf; URINE COLOR Yellow; URINE GLUCOSE Negative (NEGATIVE); URINE KETONE Negative (NEGATIVE); URINE LEUKOCYTE ESTERASE 2+ (NEGATIVE); URINE NITRATE Negative (NEGATIVE); URINE PROTEIN(semi-quant) Negative (NEGATIVE); URINE RBC 0-2 /hpf; URINE UROBILINOGEN Negative (NEGATIVE)
[2019-09-17] MEDS ORDERED: TYLENOL 8 HR PO (17:03)
--- NOTE | 2019-09-17 17:12 | NUR ---
Pt transferred to unit from ED on hospital bed. Pt is A&Ox4 and is able to communicate her wants/needs as well as participate in admission data collection. Pt has a anne that she reports was changed about 3 weeks ago and a leg bag that has yellow, hazy urine noted. Pt states she has discomfort and pain at her salina area where the anne inserts. Pt partcipated in med reconciliation and became slightly irritated during assessment/reconciliation questions stating that she has already answered these questions. Education provided that this loan underwriter must re-assess Pt which entails asking many of the same questions that were previously asked of her. Pt states understanding but remains slightly irritated although she participates. At the end of the assessment Pt was repositioned in bed for comfort, educated fire control technician g light usage with call light within reach, and a requested glass of ice water on her bedside table for her. Pt remains in stable condition at this time with no s/s of distress noted. Will continue to monitor.
[2019-09-17 17:32] VITALS: BP 149/53; PULSE 102; TEMP 99
--- NOTE | 2019-09-17 18:39 | NUR ---
Pt educated on new order for UA taken directly from Pt's anne and not her leg bag so as to obtain the cleanest specimen possible. Further education provided on new order for Antibiotic via IV to be given now of 10mls at 200mls/hr and that this medication may help reduce her pain and discomfort related to her UTI. Pt states understanding.
[2019-09-17 19:07] LABS: COLLECTION METHOD IN
[2019-09-17 19:14] LABS: BUDDING YEAST Present /hpf; MUCOUS Present /lpf; PH 5 (5-8); SQUAMOUS EPITHELIAL None Seen /hpf; URINE APPEARANCE Turbid; URINE BACTERIA Moderate /hpf; URINE BILIRUBIN Negative (NEGATIVE); URINE BLOOD Negative (NEGATIVE); URINE COLOR Yellow; URINE GLUCOSE Negative (NEGATIVE); URINE KETONE 1+ (NEGATIVE); URINE LEUKOCYTE ESTERASE 3+ (NEGATIVE); URINE NITRATE Negative (NEGATIVE); URINE PROTEIN(semi-quant) Negative (NEGATIVE); URINE UROBILINOGEN Negative (NEGATIVE); URINE WBC >50 /hpf
[2019-09-17 19:32] VITALS: BP 146/66; PULSE 112; TEMP 97.9
--- NOTE | 2019-09-17 20:20 | NUR ---
Patient assessed at this time. Alert and oriented x 4, and able to make needs known. Reported level 7 pain to right side/pelvic area. Given PRN Tramadol, 50 mg as requested for pain (had received 50 mg around 1740, and may give up to 100 mg Q6h PRN). Peripheral IV to left AC. Site is without redness, warmth, and swelling. Did complain of some discomfort. Wrapped with coban which helped. IV fluids per orders. LS CTA. Denies SOB and dyspnea. Respriations even and unlabored. HRR. Telmetry in place: sinus. Capillary refill less than 3 seconds. Non-tenting skin turgor. BSAx4. Abdomen soft and non-tender. No edema. Indwelling anne catheter with cloudy yellow urine. Had leg bag on in bed. Education provided on needing night time drainage bag to prevent urinary back flow. Voiced understanding. Changed. Leg bag to drainage bag. Voices no questions, needs, or concerns at this time. Resting in bed with call light within reach.
--- NOTE | 2019-09-17 22:41 | NUR ---
Patient complaining of level 8 pain to right side and pelvic area. Had received 50 mg Ultram at 1740, and 50 mg at 2014. Call placed to Dr. Groves. Updated MD on patient. New order to give 50 mg Ultram now, one time order. Order placed in NOV. Given to patient as requested. Voices no furhter questions, needs, or concerns at this time. Resting in bed with call light within reach.
[2019-09-18 00:13] VITALS: BP 142/61; PULSE 105; TEMP 99.7
[2019-09-18 04:35] VITALS: BP 145/73; PULSE 100; TEMP 98.3
--- NOTE | 2019-09-18 05:01 | NUR ---
Patient has has no further complaints of pain or discomfort voiced at this time. Voices no questions, needs, or concerns. Resting in bed with eyes closed at this time.
--- NOTE | 2019-09-18 07:08 | NUR ---
Report given to day shift nurse.
[2019-09-18 08:14] LABS: BASO % 0.4 % (0.0-2.0); EOS % 0.2 % (0-4.0); GRAN # 7.8 (1.4-6.5); GRAN % 78.2 % (42.2-75.2); LYMPH # 1.3 (1.2-3.4); LYMPH % 12.9 % (20.0-51.0); MEAN CELL VOLUME 93 fl (80.0-100.0); MEAN CORPUSCULAR HGB CONC 32 g/dl (33.0-37.0); MEAN PLATELET VOLUME 8.3 fl (7.4-10.4); MONO # 0.8 (0.1-0.6); PLATELET COUNT 560 K/mm3 (130-400); RED BLOOD COUNT 2.95 M/mm3 (4.10-5.30); REDCELL DISTRIBUTION WIDTH-CV 14.1 % (11.5-14.5)
[2019-09-18 08:17] LABS: HEMATOCRIT 27.3 % (37.0-47.0); HEMOGLOBIN 8.7 g/dl (12.5-16.0); MEAN CORPUSCULAR HEMOGLOBIN 29 pg (27.0-31.0)
[2019-09-18 08:21] VITALS: BP 168/67; PULSE 102; TEMP 98.2
[2019-09-18 08:27] LABS: CALCIUM 8.6 mg/dL (8.4-10.2); CREATININE, serum 0.91 (0.52-1.25); POTASSIUM 4.6 mmol/L (3.4-5.0)
--- NOTE | 2019-09-18 09:13 | NUR ---
Pt presents in bed with eyes closed and resting peacefully. As this engineering technical writer begins to speak Pt opens eyes and begins to speak and is able to make her wants/needs known. Pt reports that she has had a BM and needs help getting "cleaned up". This engineering technical writer assists Pt with changing her adult brief and salina-care and cath care performed. Pt is noted to have slight redness around her rectum and a large amount of soft brownish stool that is noted to have a reddish tinge/hue. Education provided regarding the importance of maintaining a clean anne when she returns home, especially after BM/incontinence, so as to reduce the risk of UTI due to bacteria being able to move into her bladder and kidneys via the anne. Pt states understanding. Pt reports pain in her flank and pelvis of 03/20 and requests 2 ultram. AM meds given per NOV. Pt repositioned in bed, is noted to have eaten 100% of her meal, and is resting peacefully in bed at this time with her eyes closed. Will continue to monitor.
[2019-09-18 11:38] VITALS: BP 136/59; PULSE 78; TEMP 97.9
--- NOTE | 2019-09-18 17:12 | NUR ---
Crossbar Switch Adjuster met with patient to discuss discharge planning. Patient lives with her Henok (ph#[phone]) in [place]. Patient sees Dr. Tirado for primary care and uses a walker at home. Patient reports she has been sitting and staying in bed more lately at home. Patient reports independence with ADLS however states she may need more assistance in the future. Patient states she has DPOA-HC which designates Henok, but SW did not locate copy in EMR. SW advised a copy be brought in and patient expressed understanding. SW to continue to follow to ensure safe discharge.
[2019-09-18 17:36] VITALS: BP 126/68; PULSE 94; TEMP 99.3
--- NOTE | 2019-09-18 18:20 | NUR ---
Pt provided psycho-social support via therapeutic conversation and therapeutic listening. At this time Pt is sitting upright in bed eating dinner with no complaints or s/s of distress noted.
--- NOTE | 2019-09-18 18:53 | NUR ---
Pt report given to oncoming nurse.
[2019-09-18 21:19] VITALS: BP 128/60; PULSE 91; TEMP 98
--- NOTE | 2019-09-18 21:45 | NUR ---
Patient assessed at this time. Alert and oriented x 4, and able to make needs known. Reported level 6 pain to right side/pelvic area. Given PRN Ultram as requested for pain. Peripheral IV to left AC patent. NS running per orders. Site is without redness, warmth, swelling, and pain. Denies having SOB and dyspnea. LS CTA. Respirations even and unlabored. HRR. Telemetry in place: sinus. Capillary refill less than 3 seconds. Non-tenting skin turgor. BSAx4. Abdomen soft. Patient has chronic indwelling anne catheter, draining cloudy yellow urine. Incontinent of bowel. Perineal hygiene and catheter care provided. Stool is blood tinged. No edema. Patient voices no questions, needs, or concerns at this time. Resting in bed with call light within reach.
[2019-09-19 03:09] VITALS: BP 139/59; PULSE 94; TEMP 98.3
--- NOTE | 2019-09-19 04:53 | NUR ---
Patient complained of pain to abdomen, and was given PRN Ultram as requested. Voices no further questions, needs, or concerns at this time. Resting in bed with call light within reach.
[2019-09-19 06:43] LABS: BASO # 0.1 (0.0-0.2); BASO % 0.6 % (0.0-2.0); EOS # 0.1 (0.0-0.7); EOS % 0.6 % (0-4.0); GRAN % 69.6 % (42.2-75.2); LYMPH # 1.8 (1.2-3.4); LYMPH % 17.9 % (20.0-51.0); MEAN CELL VOLUME 93 fl (80.0-100.0); MEAN CORPUSCULAR HGB CONC 32 g/dl (33.0-37.0); MEAN PLATELET VOLUME 8.4 fl (7.4-10.4); MONO # 1.1 (0.1-0.6); MONO % 10.9 % (1.7-9.3); PLATELET COUNT 523 K/mm3 (130-400); REDCELL DISTRIBUTION WIDTH-CV 14.3 % (11.5-14.5)
[2019-09-19 06:46] LABS: HEMATOCRIT 25.1 % (37.0-47.0); HEMOGLOBIN 7.9 g/dl (12.5-16.0); MEAN CORPUSCULAR HEMOGLOBIN 29 pg (27.0-31.0)
[2019-09-19 06:56] LABS: CALCIUM 8.1 mg/dL (8.4-10.2); CREATININE, serum 0.76 (0.52-1.25); POTASSIUM 4.2 mmol/L (3.4-5.0)
--- NOTE | 2019-09-19 07:09 | NUR ---
Report given to day shift nurse.
[2019-09-19 07:52] VITALS: BP 133/68; PULSE 92; TEMP 98.2
--- NOTE | 2019-09-19 08:30 | NUR ---
HAS C/O ABD PAIN AND NAUSEA THIS AM. WILL CALL PROVIDER FOR AN ANTIEMETIC FOR PT IF POSSIBLE.
--- NOTE | 2019-09-19 10:30 | NUR ---
PT STATED THAT ZOFRAN HELPED NAUSEA BRIEFLY. STATED THAT IT RETURNED. PAIN CONTINUES. ADMINISTERED NORCO FOR PAIN. DIDNT GIVE AM MEDS YET DUE TO NAUSEA. WILL REATTEMPT AT A LATER HOUR.
[2019-09-19 13:33] VITALS: BP 130/56; PULSE 91; TEMP 98.4
[2019-09-19 17:01] VITALS: BP 127/74; PULSE 90; TEMP 98.2
--- NOTE | 2019-09-19 20:10 | NUR ---
Patient assessed at this time. Alert and oriented x 4, and able to make needs known. Reported level 6 pain to right side/abdomen. Given PRN Avant as requested for pain. Peripheral IV to left AC flushed. Site is without redness, warmth, swelling, and pain. Denies SOB and dyspnea. LS CTA. Respirations even and unlabored. HRR. Telemetry: sinus. Capillary refill less than 3 seconds. Non-tenting skin turgor. BS hyperactive x 4. Abdomen soft. Did complain of nausea. Given PRN Zofran as requested. Indwelling anne catheter draining clear yellow urine via dependent drainage. Catheter care provided. No edema. Voices no further questions, needs, or concerns at this time. Resting in bed with call light within reach.
[2019-09-19 20:43] VITALS: BP 135/57; PULSE 94; TEMP 98.2
[2019-09-19 22:30] VITALS: BP 132/72; PULSE 66; TEMP 97.8
--- NOTE | 2019-09-19 23:00 | NUR ---
Patient incontinent of stool. Occult sample obtained and sent to lab, results negative. Perineal hygiene care provided, as well as catheter care. Patient did not want Heparin due to receiving a dose around 8pm. Complaining of pain to abdomen. Given PRN Ultram as requested for pain. Voices no furhter questions, needs, or concerns. Resting in bed with call light within reach.
--- NOTE | 2019-09-20 02:10 | NUR ---
Patient complaining of nausea. Given PRN Zofran. Reported that she has not been able to eat or drink much. Had patient eat some saltine crackers.
[2019-09-20 05:01] VITALS: BP 151/76; PULSE 95; TEMP 98
--- NOTE | 2019-09-20 05:22 | NUR ---
No further complaints of pain or nausea voiced at this time. Resting in bed with call light within reach.
--- NOTE | 2019-09-20 06:07 | NUR ---
Patient complaining of abdominal pain. Given PRN Council as requested.
[2019-09-20 06:27] LABS: BASO # 0.1 (0.0-0.2); BASO % 0.6 % (0.0-2.0); EOS # 0.1 (0.0-0.7); EOS % 1.2 % (0-4.0); GRAN # 7.7 (1.4-6.5); GRAN % 69.1 % (42.2-75.2); LYMPH % 17.6 % (20.0-51.0); MEAN CELL VOLUME 93 fl (80.0-100.0); MEAN CORPUSCULAR HGB CONC 31 g/dl (33.0-37.0); MEAN PLATELET VOLUME 8.5 fl (7.4-10.4); MONO # 1.2 (0.1-0.6); MONO % 11.1 % (1.7-9.3); PLATELET COUNT 578 K/mm3 (130-400); RED BLOOD COUNT 3.04 M/mm3 (4.10-5.30); REDCELL DISTRIBUTION WIDTH-CV 14.1 % (11.5-14.5)
[2019-09-20 06:35] LABS: HEMATOCRIT 28.3 % (37.0-47.0); HEMOGLOBIN 8.8 g/dl (12.5-16.0); MEAN CORPUSCULAR HEMOGLOBIN 29 pg (27.0-31.0)
[2019-09-20 06:56] LABS: CALCIUM 8.7 mg/dL (8.4-10.2); CREATININE, serum 0.8 (0.52-1.25)
--- NOTE | 2019-09-20 07:20 | NUR ---
Report given to day shift nurse.
[2019-09-20] MEDS ORDERED: OMNICEF 300MG300 MG PO (07:42)
[2019-09-20 07:49] VITALS: BP 133/73; PULSE 96; TEMP 97.2
[2019-09-20] MEDS ORDERED: NORCO 325 MG-51 TAB PO (09:42)
--- NOTE | 2019-09-20 13:30 | NUR ---
DISCHARGE EDUCATION PROVIDED. ASSISTED TO GET DRESSED, AT BEDSIDE TO TAKE HOME. NO QUESTIONS ASKED. ESCORTED TO CAR.
--- NOTE | 2019-09-20 14:25 | NUR ---
Algology Teacher attended clinical rounds with the team. Patient to be discharged today. PT recommending Home Health. ABA met with patient and provided Medicare.gov list of Home Health providers that serve [place]. Patient selected [facility] and ABA faxed referral. ABA was notified by [facility] that they can accept referral. ABA met with patient to review discharge plan and present IM form. Patient states she does not have her glasses so SW read the form to patient. Patient provided signature on the form. ABA placed form on chart and provided patient with copy. ABA faxed discharge orders to [facility]. Patient's to provide transportation home. No additional needs at this time.
== END 2019-09-20 15:00 | disposition home or self-care (01) | DRG 698 ==
LOC: COL.ER 12:00 → MEDICAL 14:07
PROVIDERS: Emergency Medicine; Nurse Practitioner Family; Physician Assistant; ADMIT Student in an Organized Health Care Education/Training Program
DX: T83.518A Infection and inflammatory reaction due to other urinary catheter, initial encounter (principal); J18.9 Pneumonia, unspecified organism; C78.6 Secondary malignant neoplasm of retroperitoneum and peritoneum; K51.90 Ulcerative colitis, unspecified, without complications; C49.9 Malignant neoplasm of connective and soft tissue, unspecified; E87.1 Hypo-osmolality and hyponatremia; I10 Essential (primary) hypertension; I95.1 Orthostatic hypotension; E78.5 Hyperlipidemia, unspecified; E87.8 Other disorders of electrolyte and fluid balance, not elsewhere classified; K21.9 Gastro-esophageal reflux disease without esophagitis; B96.20 Unspecified Escherichia coli [E. coli] as the cause of diseases classified elsewhere; K59.00 Constipation, unspecified; D64.9 Anemia, unspecified; R00.0 Tachycardia, unspecified; E86.0 Dehydration; D47.3 Essential (hemorrhagic) thrombocythemia; Z79.891 Long term (current) use of opiate analgesic; Z90.710 Acquired absence of both cervix and uterus; Z86.73 Personal history of transient ischemic attack (TIA), and cerebral infarction without residual deficits
CPT/HCPCS: 99231-AI; 99233-AI; 99239; A4216; G0378; J0456; J0692; J0696; J1644; J2405; J7030; J7050

== ENCOUNTER 2019-09-28 21:55 | Inpatient (IN) | payer MEDICARE, OTHER ==
[~2019-09-28] VITALS: Ht 167.6 cm; Wt 61.8 kg
[~2019-09-28 21:55] MED LIST changes: +NORCO 325 MG-51 TAB PO; +TYLENOL 8 HR PO
[2019-09-28 22:19] LABS: BASO # 0.1 (0.0-0.2); BASO % 0.3 % (0.0-2.0); GRAN # 13.3 (1.4-6.5); GRAN % 89.4 % (42.2-75.2); HEMATOCRIT 32.9 % (37.0-47.0); HEMOGLOBIN 10.5 g/dl (12.5-16.0); LYMPH # 0.8 (1.2-3.4); MEAN CELL VOLUME 91 fl (80.0-100.0); MEAN CORPUSCULAR HEMOGLOBIN 29 pg (27.0-31.0); MEAN CORPUSCULAR HGB CONC 32 g/dl (33.0-37.0); MEAN PLATELET VOLUME 8.7 fl (7.4-10.4); MONO # 0.7 (0.1-0.6); MONO % 4.8 % (1.7-9.3); PLATELET COUNT 551 K/mm3 (130-400); RED BLOOD COUNT 3.61 M/mm3 (4.10-5.30); REDCELL DISTRIBUTION WIDTH-CV 15.9 % (11.5-14.5)
[2019-09-28 22:21] LABS: INR 1.4 (0.8-3.0); PROTHROMBIN TIME 16.4 SECONDS (9.7-12.8)
[2019-09-28 22:34] LABS: ALBUMIN 3.3 gm/dL (3.5-5.0); BILIRUBIN,TOTAL 0.8 mg/dL (0.0-1.0); CALCIUM 9.4 mg/dL (8.4-10.2); CREATININE, serum 1.26 (0.52-1.25); POTASSIUM 5.1 mmol/L (3.4-5.0); TOTAL PROTEIN 7.1 gm/dL (6.4-8.2)
[2019-09-28 22:43] LABS: TROPONIN-I 0.017 ng/mL (0.000-0.035)
[2019-09-28 23:53] LABS: COLLECTION METHOD CATHETER
[2019-09-29 00:01] LABS: MUCOUS Present /lpf; PH 5 (5-8); SQUAMOUS EPITHELIAL 0-2 /hpf; URINE APPEARANCE Cloudy; URINE BACTERIA Rare /hpf; URINE BILIRUBIN Negative (NEGATIVE); URINE BLOOD 1+ (NEGATIVE); URINE CALCIUM OXALATE CRYSTAL Present /hpf; URINE COLOR Yellow; URINE GLUCOSE Negative (NEGATIVE); URINE KETONE Negative (NEGATIVE); URINE LEUKOCYTE ESTERASE 2+ (NEGATIVE); URINE NITRATE Negative (NEGATIVE); URINE PROTEIN(semi-quant) Negative (NEGATIVE); URINE UROBILINOGEN Negative (NEGATIVE)
[2019-09-29 01:05] VITALS: BP 131/48; PULSE 88; TEMP 97.6
--- NOTE | 2019-09-29 01:55 | NUR ---
PT ADMITTED WITH ABDOMINAL PAIN/NAUSEA/UTI. HOSPITALIST TO SEE HER THIS MORNING. SEE 5 PAGE ADMISSION ASSESSMENT.
[2019-09-29 04:39] VITALS: BP 111/45; PULSE 85; TEMP 98.1
--- NOTE | 2019-09-29 05:51 | NUR ---
PT STARTED PULLING TELE OFF, STATING SHE THOUGHT SHE DIDN'T HAVE TO DO ANY OF THAT SINCE SHE WANTS TO GO TO HOSPICE. PT IS A BIT DISORIENTED AT TIMES.
--- NOTE | 2019-09-29 07:28 | NUR ---
Vancomycin Initial Dosing Pharmacy Note Ordering provider: Marianna Camacho/Mike Perla MD Indication/duration: CAP, aspiration PNA Relevant comorbidities: metastatic leiomyosarcoma LABS: WBC 14.9, SCr 1.3, CrCl 26 Recommendation: 17 mg/kg Maintenance dose: 1 gram every 24 hours Trough goal: 15-20 ug/mL.
[2019-09-29 08:20] VITALS: BP 121/49; PULSE 88; TEMP 97.8
[2019-09-29 11:36] VITALS: BP 123/51; PULSE 90; TEMP 98.1
--- NOTE | 2019-09-29 12:28 | NUR ---
Plan: To transfer to [facility] 09/30/2019. Assess: Sw met with client and on room about DC to Hospice care. Patient and indicated that they have talked with the PCP Dr. Celestino Araujo about comfort care and are ready. Patient reports that she is unable to walk at this time but was using a walker and is currently using a Wheelchair. Patient reports that he Henok is her DPOA . Patient indicated that they use [facility] for medications. Patient reports that use of a cath for urine; patient denies any other DME use. Action: ABA called [facility] for intake at [phone] and Spoke with Willard who state they could not accept today but basil tommorrow. Fax intake to [phone] Nothing follows
--- NOTE | 2019-09-29 13:00 | NUR ---
Patient has decided to go to hospice. She did not want anymore treatment at this time. Her family is at bedside. Explained that the patient can not go to hospice until tomorrow. She stated she is uncomfortable and has some pain but does not want pain medication. Denies nausea. Call light within reach. Got her a k-pad to use on her abdomen for pain.
--- NOTE | 2019-09-29 18:23 | NUR ---
Patient has been doing well this afternoon. She stated the heatpack has been working well for her pain. She is resting comfortably. Explained that she will discharge tomorrow to Hospice. She is confused and forgetful but sometimes she is oriented to self and family. No other changes at this time. Call light within reach.
[2019-09-29 20:14] VITALS: BP 132/52; PULSE 94; TEMP 99.8
--- NOTE | 2019-09-30 01:15 | NUR ---
ASSUMED CARE OF PT. RESTING QUIETLY AT THIS TIME.
--- NOTE | 2019-09-30 04:31 | NUR ---
TOOK OVER PT CARE. PT RESTING QUIETLY/SLEEPING AT THIS TIME. WILL MONITOR FOR PAIN, REPOSITION.
--- NOTE | 2019-09-30 06:43 | NUR ---
RESTING QUIETLY/SLEEPING.
--- NOTE | 2019-09-30 07:26 | NUR ---
Lying in bed with eyes open. Patient alert, confused on year and city in at this time. Complains of some nausea and rates pain in abd 8/10 at this time. 2+ edema noted in bilat LE.
[2019-09-30 07:34] LABS: ALBUMIN 2.6 gm/dL (3.5-5.0); BILIRUBIN,TOTAL 0.4 mg/dL (0.0-1.0); CALCIUM 9.3 mg/dL (8.4-10.2); CREATININE, serum 1.11 (0.52-1.25); POTASSIUM 4.3 mmol/L (3.4-5.0); TOTAL PROTEIN 5.9 gm/dL (6.4-8.2)
[2019-09-30 07:35] LABS: BASO # 0.1 (0.0-0.2); BASO % 0.6 % (0.0-2.0); EOS % 0.1 % (0-4.0); GRAN # 10.1 (1.4-6.5); GRAN % 79.1 % (42.2-75.2); LYMPH # 1.4 (1.2-3.4); LYMPH % 10.9 % (20.0-51.0); MEAN CELL VOLUME 91 fl (80.0-100.0); MEAN CORPUSCULAR HGB CONC 32 g/dl (33.0-37.0); MEAN PLATELET VOLUME 8.6 fl (7.4-10.4); MONO # 1.1 (0.1-0.6); MONO % 8.8 % (1.7-9.3); PLATELET COUNT 484 K/mm3 (130-400); RED BLOOD COUNT 3.11 M/mm3 (4.10-5.30); REDCELL DISTRIBUTION WIDTH-CV 16.3 % (11.5-14.5)
[2019-09-30 07:38] LABS: HEMATOCRIT 28.2 % (37.0-47.0); HEMOGLOBIN 8.9 g/dl (12.5-16.0); MEAN CORPUSCULAR HEMOGLOBIN 29 pg (27.0-31.0)
--- NOTE | 2019-09-30 07:53 | NUR ---
Assisted patient up to bedside commode per patient request to have bowel movement. Requires assist of two. Gait slow and unsteady. Patient has small brown loose BM. Patient cleaned and returns to bed. Blood noted around catheter site. Cleaned salina area. No open areas noted. Patient says that the pain in her abd is a little better but still present and would like pain medication. Administered Morphine as prescribed. Patient sitting up in bed attempting to eat breakfast at this time. Denies further needs.
[2019-09-30 08:24] VITALS: BP 114/45; PULSE 104; TEMP 98.4
[2019-09-30] MEDS ORDERED: ROXANOL 20MG20 MG/ML SL (08:43)
[2019-09-30] MEDS ORDERED: ATIVAN 1MG T1 MG/TAB PO (08:43)
[2019-09-30] MEDS ORDERED: IPRATROPIUM BROM3 M1 IH (08:43)
[2019-09-30] MEDS ORDERED: ZOFRAN ODT4 MG PO (08:44)
[2019-09-30] MEDS ORDERED: TRANSDERM-0.5 MG/21 TD (08:44)
--- NOTE | 2019-09-30 09:32 | NUR ---
Met with pt this am after her had arrived. She reports not sure she should go to [facility] yet.. Advised that Dr Tirado will continue to follow her at [facility] but pt requests that I talk with Dr Tirado to be sure. Call placed to Dr Van Tirado and she spoke with pt by phone, after which she was agreeable to go. Orders for discharge have been written and scripts sent to [facility] pharmacy. I have spoken with Willard and with El at [facility] and we will plan to transfer her by EMS to [facility] at 11am today. also spoke with El at [facility] by phone and he denies having questions at completion of call. Primary nurse, Patricia, forensic social worker, Komal, as well as BALA Lopez were all advised of decision to proceed forward. While is tearful he is nodding in agreement that this is what they want to do.
[2019-09-30 09:33] VITALS: BP 114/45; PULSE 104; TEMP 98.4
--- NOTE | 2019-09-30 09:56 | NUR ---
Message left at [facility] to contact this nurse to get report. Message was left for Angela to advise if replacement of patient folwy catheter needs to take place or not at this time.
--- NOTE | 2019-09-30 10:10 | NUR ---
Report provided to nurse at [facility].
--- NOTE | 2019-09-30 10:16 | NUR ---
Initial visit with Cherelle's Henok letting him know Process Tank Tender is present and available to him and Cherelle at any time to offer comfort and prayer. Henok tearfully thanked for her presence. Process Tank Tender will follow up.
--- NOTE | 2019-09-30 10:49 | NUR ---
Patient having pain in abd and nausea. Administered Zofran and Morphine as prescribed.
--- NOTE | 2019-09-30 11:00 | NUR ---
EMS here to bulk picker patient. Patient transferred from bed to EMS cot with little difficulty. Paperwork provided to EMS staff. IV reina to right AC was dc'd with catheter intact. 2x2's applied to site and reinforced with tape.
--- NOTE | 2019-09-30 11:05 | NUR ---
Reconnaissance Crewmember met with Nisha Palliative RN who advised patient is ready to go to [facility] and that they can admit patient today at 1100. ABA contacted [facility] to set up transportation for 1030, with an arrival time of 1100 at [facility]. ABA met with patient's , Henok (ph#[phone]) to provide update. ABA placed completed EMS transport forms on patient chart. ABA faxed discharge orders to [facility]. No additional concerns at this time.
--- NOTE | 2019-09-30 11:08 | NUR ---
Contacted Shanika at [facility] and provided update on medications that Dr. Miller's office has not gotten back with us and they will contact them regarding the catheter if it needs changed.
== END 2019-09-30 11:10 | disposition hospice, inpatient (51) | DRG 754 ==
LOC: COL.ER 21:55 → SURG 23:15
PROVIDERS: Emergency Medicine; Nurse Practitioner Family; ADMIT Family Medicine
DX: C55 Malignant neoplasm of uterus, part unspecified (principal); A41.9 Sepsis, unspecified organism; C78.6 Secondary malignant neoplasm of retroperitoneum and peritoneum; J90 Pleural effusion, not elsewhere classified; N39.0 Urinary tract infection, site not specified; C79.10 Secondary malignant neoplasm of unspecified urinary organs; N17.9 Acute kidney failure, unspecified; E87.1 Hypo-osmolality and hyponatremia; Z51.5 Encounter for palliative care; I10 Essential (primary) hypertension; K21.9 Gastro-esophageal reflux disease without esophagitis; E78.5 Hyperlipidemia, unspecified; D63.0 Anemia in neoplastic disease; E86.0 Dehydration; E87.5 Hyperkalemia; R73.9 Hyperglycemia, unspecified; B96.20 Unspecified Escherichia coli [E. coli] as the cause of diseases classified elsewhere; Z86.73 Personal history of transient ischemic attack (TIA), and cerebral infarction without residual deficits; Z90.710 Acquired absence of both cervix and uterus; Z90.49 Acquired absence of other specified parts of digestive tract; Z90.13 Acquired absence of bilateral breasts and nipples; Z79.02 Long term (current) use of antithrombotics/antiplatelets; Z79.891 Long term (current) use of opiate analgesic; Z88.8 Allergy status to other drugs, medicaments and biological substances
CPT/HCPCS: OP; 99239; A4216; J0696; J2270; J2405; J2543; J3370; J7030; J7050; Q9967